=== PATIENT | male | born 1985 | race African-American/Black ===

== ENCOUNTER 2016-06-04 10:43 | Emergency (ER) | payer BC, OTHER ==
[2016-06-04 10:49] VITALS: BP 155/93
[2016-06-04] MEDS ORDERED: IBUPROFEN 800 MG TABLET PO ONE (10:58)
--- NOTE | 2016-06-04 11:00 | ER Document Report ---
ED Medical Screen (RME) - General Stated Complaint: KNEE PAIN Mode of Arrival: Ambulatory Information source: Patient Notes: Patient presents to the emergency department with left knee pain. Reports started hurting on Saturday swelling on Saturday. Denies trauma. Denies recent injury. Denies past medical history of injury to the knee. walks with a limp. I have greeted and performed a rapid initial assessment of this patient. A comprehensive ED assessment and evaluation of the patient, analysis of test results and completion of the medical decision making process will be conducted by additional ED providers. TRAVEL OUTSIDE OF THE [place] IN LAST 30 DAYS: No Physical Exam - Vital signs Vitals: Temp Pulse Resp BP Pulse Ox 98.7 F 98 16 155/93 H 98 06/04/16 10:48 06/04/16 10:48 06/04/16 10:48 06/04/16 10:48 06/04/16 10:48 Course - Vital Signs Vital signs: Temp Pulse Resp BP Pulse Ox 98.7 F 98 16 155/93 H 98 06/04/16 10:48 06/04/16 10:48 06/04/16 10:48 06/04/16 10:48 06/04/16 10:48
--- NOTE | 2016-06-04 11:42 | ER Document Report ---
HPI - HPI Patient complains to provider of: left knees pain and swelling Onset: Other - Saturday Onset/Duration: Gradual Pain Level: 5 Context: 31-year-old male developed anterior left knee pain on Saturday without injury. It swelled over the weekend. No fever or chills. No previous knee problems or injury. Associated Symptoms: None Exacerbated by: Movement, Walking Relieved by: Denies Similar symptoms previously: No Recently seen / treated by doctor: No - ROS ROS below otherwise negative: Yes Systems Reviewed and Negative: Yes All other systems reviewed and negative - DERM Skin Color: Normal Past Medical History - General Information source: Patient - Social History Smoking Status: Current Some Day Smoker Chew tobacco use (# tins/day): Yes Drug Abuse: None Lives with: Family Family History: Reviewed & Not Pertinent Patient has suicidal ideation: No Patient has homicidal ideation: No - Medical History Medical History: Negative Renal/ Medical History: Denies: Hx Peritoneal Dialysis Surgical Hx: Negative Vertical Provider Document - CONSTITUTIONAL Agree With Documented VS: Yes Exam Limitations: No Limitations - INFECTION CONTROL TRAVEL OUTSIDE OF THE [place] IN LAST 30 DAYS: No - HEENT HEENT: Normocephalic - NECK Neck: Supple - RESPIRATORY O2 Sat by Pulse Oximetry: 98 - MUSCULOSKELETAL/EXTREMETIES Musculoskeletal/Extremeties: MAEW, FROM, Tender - Soft tissue anterior left knee , not hot, not red Notes: Small left knee effusion on x-ray and by physical exam - NEURO Level of Consciousness: Awake, Alert Motor/Sensory: No Motor Deficit, No Sensory Deficit Notes: 2+ DP - DERM Integumentary: Warm, Dry, No Rash Course - Vital Signs Vital signs: Temp Pulse Resp BP Pulse Ox 98.7 F 98 16 155/93 H 98 06/04/16 10:48 06/04/16 10:48 06/04/16 10:48 06/04/16 10:48 06/04/16 10:48 Procedures - Immobilization Left Knee Time completed: 11:50 Pre-Proc Neuro Vasc Exam: Normal Immobilizer type: Crutches, Knee immobilizer Performed by: PCT Post-Proc Neuro Vasc Exam: Normal Alignment checked and good: Yes Discharge - Discharge Clinical Impression: atraumatic left knee effusion Condition: Good Disposition: HOME, SELF-CARE Instructions: Knee Immobilizing Splint ([facility]), Ice & Elevation ([facility]), Use of Crutches ([facility]), Knee Effusion ([facility]) Additional Instructions: elevate above your heart xray is negative Splint for several days and crutches See orthopedist doctor if persists Take the Motrin for inflammation Please complete the patient satisfaction survey if you get one, and return it.. If you do not receive a survey, then you can go to the [facility] website, [email or web address] and place your comments about your very good care. Thank you very much. It was a pleasure being your medical provider today. Prescriptions: Ibuprofen [Motrin 800 mg Tablet] 800 mg PO Q8HP PRN #30 tablet PRN Reason: Forms: Return to Work
== END 2016-06-04 12:26 | disposition home or self-care (01) ==
LOC: ER 10:43
DX: M25.462 Effusion, left knee (principal); M25.562 Pain in left knee; F17.210 Nicotine dependence, cigarettes, uncomplicated
CPT/HCPCS: 99283; 73562; L1830

== ENCOUNTER 2017-05-08 13:20 | Emergency (ER) | payer OTHER ==
[2017-05-08] MEDS ORDERED: ONDANSETRON HCL INJ/PF 4 MG/2 ML SDV IV ONE (13:56)
[2017-05-08] MEDS ORDERED: NORMAL SALINE 1000 ML 1,000 ML IV ONE (13:56)
--- NOTE | 2017-05-08 14:19 | ER Document Report ---
ED General - General Chief Complaint: Nausea/Vomiting/Diarrhea Stated Complaint: ABDOMINAL PAIN, VOMITING,DIARRHEA Time Seen by Provider: 05/08/17 13:55 Notes: 31-year-old male to the emergency department chief complaint of vomiting diarrhea. Some mild abdominal cramping as well. States that it 4-year-old daughter at home was sick a couple of days ago. Started having nausea vomiting and diarrhea today. Crampy abdominal pain. Nonradiating. Denies any fever, chills, sweats. TRAVEL OUTSIDE OF THE [place] IN LAST 30 DAYS: No - HPI Onset: Just prior to arrival Onset/Duration: Sudden, Constant Quality of pain: Achy Severity: Moderate Pain Level: 0 Associated symptoms: Diarrhea, Nausea, Vomiting - Related Data Allergies/Adverse Reactions: No Known Allergies Allergy (Verified 05/08/17 13:44) Past Medical History - General Information source: Patient - Social History Smoking Status: Current Every Day Smoker Cigarette use (# per day): No Chew tobacco use (# tins/day): No Frequency of alcohol use: None Drug Abuse: None Lives with: Family Family History: Reviewed & Not Pertinent Patient has suicidal ideation: No Patient has homicidal ideation: No - Past Medical History Cardiac Medical History: Reports: None Pulmonary Medical History: Reports: None EENT Medical History: Reports: None Neurological Medical History: Reports: None Endocrine Medical History: Reports: None Renal/ Medical History: Reports: None. Denies: Hx Peritoneal Dialysis Malignancy Medical History: Reports None GI Medical History: Reports: None Musculoskeltal Medical History: Reports None Skin Medical History: Reports None Psychiatric Medical History: Reports: None Past Surgical History: Reports: None Review of Systems - Review of Systems Constitutional: No symptoms reported. denies: Fever, Malaise, Weakness EENT: No symptoms reported. denies: Double vision, Ear pain, Throat pain, Throat swelling Cardiovascular: No symptoms reported. denies: Chest pain, Palpitations, Heart racing Respiratory: No symptoms reported Gastrointestinal: No symptoms reported, Abdominal pain, Diarrhea, Nausea, Vomiting Genitourinary: No symptoms reported. denies: Burning, Dysuria, Discharge Male Genitourinary: No symptoms reported. denies: Testicular pain, Penile discharge Musculoskeletal: No symptoms reported. denies: Back pain, Joint pain, Muscle pain, Muscle stiffness Skin: No symptoms reported. denies: Lesions, Lumps, Rash Hematologic/Lymphatic: No symptoms reported Neurological/Psychological: No symptoms reported. denies: Confusion, Weakness, Numbness Physical Exam - Vital signs Vitals: Temp Pulse Resp BP Pulse Ox 97.9 F 83 16 131/81 H 99 05/08/17 13:32 05/08/17 13:32 05/08/17 13:32 05/08/17 13:32 05/08/17 13:32 Interpretation: Normal - General General appearance: Appears well, Alert - HEENT Head: Normocephalic, Atraumatic Eyes: Normal Pupils: PERRL - Respiratory Respiratory status: No respiratory distress Chest status: Nontender Breath sounds: Normal Chest palpation: Normal - Cardiovascular Rhythm: Regular Heart sounds: Normal auscultation Murmur: No - Abdominal Inspection: Normal Distension: No distension Bowel sounds: Normal Tenderness: Nontender Organomegaly: No organomegaly - Back Back: Normal, Nontender - Extremities General upper extremity: Normal inspection, Nontender, Normal color, Normal ROM , Normal temperature General lower extremity: Normal inspection, Nontender, Normal color, Normal ROM , Normal temperature, Normal weight bearing. No: Faith's sign - Neurological Neuro grossly intact: Yes Cognition: Normal Orientation: AAOx4 Elmer Coma Scale Eye Opening: Spontaneous Elmer Coma Scale Verbal: Oriented [place] Coma Scale Motor: Obeys Commands Elmer Coma Scale Total: 15 Speech: Normal Motor strength normal: LUE, RUE, LLE, RLE Sensory: Normal - Psychological Associated symptoms: Normal affect, Normal mood - Skin Skin Temperature: Warm Skin Moisture: Dry Skin Color: Normal Course - Re-evaluation Re-evalutation: 05/08/17 14:59 Is a well-appearing male in no acute distress at this time with a benign abdominal exam. Likely gastroenteritis. Basic labs have been ordered at this time. Pepcid, fluid, Zofran given. One other sick contacts at home. Denies any blood in his stool. Strict instructions will be given with regards to abdominal pain. Patient was advised if he depends develop abdominal pain in the right lower quadrant, right upper quadrant, blood in his stool, worsening pain that he should be reevaluated within the next 12-24 hours in the emergency department or by primary care doctor. Patient verbalized understanding of these instructions. 05/08/17 15:22 Ultrasound unremarkable. Labs are normal appearing. Patient feeling a bit better at this time. Comfortable at this time stating patient most likely has gastroenteritis. Will give work note for the next couple of days. Will prescribe some Zofran and Pepcid. Advised to take Tylenol for fever and cramping. Advised him to return for symptoms as mentioned above 05/08/17 15:23 Laboratory 05/08/17 05/08/17 14:12 14:12 WBC 10.2 RBC 6.86 H Hgb 14.9 Hct 46.8 MCV 68 L MCH 21.7 L MCHC 31.8 L RDW 16.9 H Plt Count 234 Seg Neutrophils % 79.0 H Lymphocytes % 11.0 L Monocytes % 7.7 Eosinophils % 1.9 Basophils % 0.4 Absolute Neutrophils 8.1 Absolute Lymphocytes 1.1 Absolute Monocytes 0.8 Absolute Eosinophils 0.2 Absolute Basophils 0.0 Sodium 143.1 Potassium 4.9 Chloride 103 Carbon Dioxide 26 Anion Gap 14 BUN 21 H Creatinine 0.87 Est GFR ( Amer) > 60 Est GFR (Non-Af Amer) > 60 Glucose 102 Calcium 10.4 H Total Bilirubin 0.9 Direct Bilirubin 0.5 H Neonat Total Bilirubin Not Reportable Neonat Direct Bilirubin Not Reportable Neonat Indirect Bili Not Reportable AST 29 ALT 33 Alkaline Phosphatase 100 Total Protein 9.0 H Albumin 5.2 H Lipase 34.8 Abdomen Ultrasound 05/08/17 13:56 IMPRESSION: No gallstones, gallbladder wall thickening or pericholecystic fluid. - Vital Signs Vital signs: Temp Pulse Resp BP Pulse Ox 97.9 F 83 16 131/81 H 99 05/08/17 13:32 05/08/17 13:32 05/08/17 13:32 05/08/17 13:32 05/08/17 13:32 - Laboratory Result Diagrams: 05/08/17 14:12 05/08/17 14:12 Laboratory results interpreted by me: 05/08/17 05/08/17 14:12 14:12 RBC 6.86 H MCV 68 L MCH 21.7 L MCHC 31.8 L RDW 16.9 H Seg Neutrophils % 79.0 H Lymphocytes % 11.0 L BUN 21 H Calcium 10.4 H Direct Bilirubin 0.5 H Total Protein 9.0 H Albumin 5.2 H Discharge - Discharge Clinical Impression: Gastroenteritis Condition: Good Disposition: HOME, SELF-CARE Instructions: Antinausea Medication ([facility]), Gastroenteritis (adult) ([facility]), Clear Liquid Diet ([facility]), Prescribed Antidiarrhea Medications ([facility]) Additional Instructions: Continue to stay hydrated. Take the nausea medication if needed if nausea is preventing you from staying hydrated. If you continue to have diarrhea after 48 hours you may begin taking something such as Imodium or Pepto-Bismol to help slow the stools down. The main thing is to stay hydrated. If you begin to develop worsening abdominal pain especially if the pain in the abdomen begins to localize around the bellybutton, right lower quadrant or right upper quadrant then please return. If your symptoms are no better or getting worse over the next 12-24 hours then please return to the emergency department or with a primary care provider for repeat abdominal exam is sometimes early appendicitis can present similar to the symptoms. Prescriptions: Loperamide HCl [Imodium A-D] 2 mg PO QID PRN 5 Days #20 tablet PRN Reason: Ondansetron [Zofran Odt 4 mg Tablet] 1 - 2 tab PO Q4H PRN #15 tab.rapdis PRN Reason: For Nausea/Vomiting Forms: Return to Work
[2017-05-08] MEDS ORDERED: FAMOTIDINE INJ/PF 20 MG/2 ML SDV IV ONE (14:35)
[2017-05-08 14:40] LABS: ABSOLUTE EOSINOPHILS # (AUTO) 0.2 10^3/uL (0.0-0.6); ABSOLUTE MONOCYTES (AUTO) 0.8 10^3/uL (0.1-1.4); BASOPHILS % (AUTO) 0.4 % (0-2); EOSINOPHILS % (AUTO) 1.9 % (0-6); MEAN CORPUSCULAR VOLUME 68 fl (80-97)
[2017-05-08 14:59] LABS: ABSOLUTE LYMPHOCYTES (AUTO) 1.1 10^3/uL (0.5-4.7); ABSOLUTE NEUT (AUTO) 8.1 10^3/uL (1.7-8.2); HEMATOCRIT 46.8 % (37.9-51.0); HEMOGLOBIN 14.9 g/dL (13.5-17.0); MEAN CORPUSCULAR HEMOGLOBIN 21.7 pg (27.0-33.4); MEAN CORPUSCULAR HGB CONC 31.8 g/dL (32.0-36.0); MONOCYTES % (AUTO) 7.7 % (3-13); PLATELET COUNT 234 10^3/uL (150-450); RED BLOOD COUNT 6.86 10^6/uL (4.35-5.55); RED CELL DISTRIBUTION WIDTH 16.9 % (11.5-14.0); TOTAL CELLS COUNTED % (AUTO) 100 %; WHITE BLOOD COUNT 10.2 10^3/uL (4.0-10.5)
[2017-05-08 15:02] LABS: ALANINE AMINOTRANSFERASE 33 U/L (21-72); ALBUMIN 5.2 g/dL (3.5-5.0); ALKALINE PHOSPHATASE 100 U/L (38-126); ANION GAP 14 (5-19); ASPARTATE AMINO TRANSFERASE 29 U/L (17-59); BILIRUBIN,DIRECT 0.5 mg/dL (0.0-0.4); BILIRUBIN,TOTAL 0.9 mg/dL (0.2-1.3); BLOOD UREA NITROGEN 21 mg/dL (7-20); CALCIUM 10.4 mg/dL (8.4-10.2); CARBON DIOXIDE 26 mmol/L (22-30); CHLORIDE 103 mmol/L (98-107); GLUCOSE 102 mg/dL (75-110); LIPASE 34.8 U/L (23-300); POTASSIUM 4.9 mmol/L (3.6-5.0); SODIUM 143.1 mmol/L (137-145)
--- NOTE | 2017-05-08 15:18 | RADIOLOGY REPORT (SQ) ---
EXAM DESCRIPTION: U/S ABDOMEN LIMITED W/O DOP COMPLETED DATE/TIME: 05/08/2017 3:02 pm REASON FOR STUDY: ruq pain COMPARISON: None. TECHNIQUE: Dynamic and static grayscale images acquired of the abdomen and recorded on PACS. Additio nal selected color Doppler and spectral images recorded. LIMITATIONS: Upper abdominal bowel gas FINDINGS: PANCREAS: Midline pancreas not well seen LIVER: No masses. Echotexture normal. LIVER VASCULATURE: Normal directional flow of the main portal vein and hepatic veins. GALLBLADDER: No stones. Normal wall thickness. No pericholecystic fluid. ULTRASOUND-DETECTED BILL'S SIGN: Negative. INTRAHEPATIC DUCTS AND COMMON DUCT: CBD and intrahepatic ducts normal caliber. No filling defects. D istal common duct not well seen due to duodenum gas INFERIOR VENA CAVA: Normal flow. AORTA: No aneurysm. RIGHT KIDNEY: Normal size. Normal echogenicity. No solid or suspicious masses. No hydronephrosis. No calcifications. PERITONEAL AND RIGHT PLEURAL SPACE: No ascites or effusions. OTHER: No other significant findings. IMPRESSION: No gallstones, gallbladder wall thickening or pericholecystic fluid. TECHNICAL DOCUMENTATION: JOB ID: [id number] [employer]- All Rights Reserved Reading location - IP/workstation name: [email or web address]
[2017-05-08 16:19] VITALS: BP 128/82
== END 2017-05-08 16:19 | disposition home or self-care (01) ==
LOC: ER 13:20
DX: K52.9 Noninfective gastroenteritis and colitis, unspecified (principal); R11.2 Nausea with vomiting, unspecified; R10.9 Unspecified abdominal pain; F17.200 Nicotine dependence, unspecified, uncomplicated
CPT/HCPCS: 99284; 96374; 36415; 83690; 85025; 80053; 76705; S0028